=== PATIENT | male | born 1995 | race Caucasian/White ===

== ENCOUNTER 2016-05-15 17:32 | Emergency (ER) | payer SELFPAY ==
[~2016-05-15] VITALS: Ht 167.6 cm; Wt 63.0 kg
[2016-05-15 17:33] VITALS: BP 118/62; PULSE 69; RESP 15; TEMP 97.9; O2SAT 99
[2016-05-15] MEDS ORDERED: LISI10TA3 PO (17:44)
[2016-05-15] MEDS ORDERED: MAXI5O EACH EYE (17:52)
--- NOTE | 2016-05-15 17:52 | PD ---
HPI Chief Complaint: Eye Problems/Injury Time Seen by Provider: 17:49 Travel History International Travel<30 days: No Contact w/Intl Traveler<30days: No Traveled to known affect area: No History of Present Illness HPI 20-year-old male presents the emergency Department with watery irritated right eye which started since yesterday. Patient denies upper respiratory symptoms such as fever, chills, or sore throat. Patient recently flew down here from [place] for vacation. Patient denies visual changes. He has no known drug allergies. [facility] Past Medical History Diminished Hearing: No Hypertension: Yes Medical other: Yes (KIDNEY DISORDER , FSGS) Tetanus Vaccination: Unknown Influenza Vaccination: No ?: Not Past Surgical History Genitourinary Surgery: Yes (RENAL BIOPSIES) Social History Alcohol Use: No Tobacco Use: No Substance Use: No Allergies-Medications (Allergen,Severity, Reaction): Coded Allergies: No Known Allergies (Unverified , 05/15/16) Reported Meds & Prescriptions Reported Meds & Active Scripts Active Reported Lisinopril 10 Mg Tab 15 Mg PO DAILY Review of Systems Except as stated in HPI: all other systems reviewed are Neg General / Constitutional: No: Fever Eyes: Positive: Drainage, Redness, Tearing, No: Diploplia, Blurred Vision, Photophobia, Foreign Body Sensation, Pain, Blind Spots, Visual changes, Blindness HENT: No: Headaches Cardiovascular: No: Chest Pain or Discomfort Respiratory: No: Shortness of Breath Gastrointestinal: No: Abdominal Pain Genitourinary: No: Dysuria Musculoskeletal: No: Pain Skin: No Rash Neurologic: No: Weakness Psychiatric: No: Depression Endocrine: No: Polydipsia Hematologic/Lymphatic: No: Easy Bruising Physical Exam Narrative GENERAL: Patient appears in no acute distress. SKIN: Warm and dry. Normal color. Normal turgor. No rash. HEAD: Atraumatic. Normocephalic. EYES: Pupils equal and round. No scleral icterus. Mild right sided conjunctival injection with clear drainage and tearing. ENT: No nasal bleeding or discharge. Mucous membranes pink and moist. Pharynx is clear. Airway is patent. NECK: Trachea midline. No JVD. CARDIOVASCULAR: Regular rate and rhythm. RESPIRATORY: No accessory muscle use. MUSCULOSKELETAL: Extremities without clubbing, cyanosis, or edema. No obvious deformities. NEUROLOGICAL: Awake and alert. No obvious cranial nerve deficits. Motor grossly within normal limits. Five out of 5 muscle strength in the arms and legs. Normal speech. PSYCHIATRIC: Appropriate mood and affect; insight and judgment normal. Data Data Last Documented VS Vital Signs Date Time Temp Pulse Resp B/P Pulse Ox O2 Delivery O2 Flow Rate FiO2 05/15/16 17:33 97.9 69 15 118/62 99 MDM Medical Decision Making Medical Screen Exam Complete: Yes Emergency Medical Condition: Yes Differential Diagnosis Conjunctivitis. Eye irritation. Eye watering. Narrative Course Patient is medically stable at time of exam. Patiently treated Maxitrol ophthalmic drops 2-3 drops in both eyes every 3 hours while awake. Patient follow up if symptoms do not improve with the above treatment. Diagnosis Primary Impression: Conjunctivitis Qualified Code: H10.33 - Acute conjunctivitis of both eyes, unspecified acute conjunctivitis type Referrals: [facility] Care Physician Patient Instructions: Conjunctivitis (ED), General Instructions Additional Instructions: Patiently treated Maxitrol ophthalmic drops 2-3 drops in both eyes every 3 hours while awake. Patient follow up if symptoms do not improve with the above treatment. Med/Other Pt SpecificInfo: Prescription(s) given Scripts Llmybheg-Acfhsrgfd-Eufcsamvgkcrh Opth Drops (Maxitrol Opth Drops)3.5-10,000-0.1 Mg-Units-% Susp1 Drop EACH EYE Q4H #1 BOTTLE Prov:Gilma Huynh MD 05/15/16 Disposition: 01 DISCHARGE HOME Condition: Stable Sven Davalos May 15, 2016 17:51
== END 2016-05-15 18:07 | disposition home or self-care (01) ==
LOC: PHEFT 17:32
DX: H10.33 Unspecified acute conjunctivitis, bilateral (principal)
CPT/HCPCS: 99282